=== PATIENT | female | born 1930 | race Caucasian/White ===

== ENCOUNTER → 2016-11-27 | Day surgery (SDC) | payer MEDICARE, OTHER ==
[~2016-11-27] VITALS: Ht 165.1 cm; Wt 60.0 kg
[~2016-11-27] MED LIST: AGGRENOX 25 MG1 EACH PO; CALTRATE 600 +1 EAC1 PO; COREG6.25 MG PO; CRESTOR10 MG PO; FISH OIL 1,0001 EACH PO; HYDROCODON-ACE1 EAC4 PO; KEFLEX500 MG PO; LEVOTHROID (SY50 MCG PO; MICARDIS40 MG PO; MYRBETRIQ25 MG PO; NORVASC2.5 MG PO; ONE DAILY1 EACH PO; OXYGEN M-15 INH; PRESERVISION A1 EACH PO; TRIAMCINOLONE454 GM TOP
--- NOTE | ~2016-11-27 | OR ---
PATIENT'S NAME: KRISTINE CRUM [facility] AGE: 86 Y [address] ROOM: [place] [id number] LOCATION: [facility] [place] ADMIT DATE: 11/27/2016 OR/Procedure Report DISCHARGE DATE: FAMILY PHYSICIAN: Effie Jaquez APRN ATTENDING PHYSICIAN: Anjum Cervantes SURGEON: Anjum Cervatnes DO INTEGRATION ANALYST: DATE OF PROCEDURE: 11/27/2016 PREOPERATIVE DIAGNOSIS: Dual-chamber generator at normal battery depletion. POSTOPERATIVE DIAGNOSIS: Dual-chamber generator at normal battery depletion. PROCEDURES PERFORMED: Exchange of dual-chamber pacemaker generator. BRIEF HISTORY: Ms. Crum is an 86-year-old white female with the above noted diagnosis. She has been brought to the Operative Suite today after informed consent was obtained for exchange of her device. DESCRIPTION OF SURGERY: Previous incision was marked with a surgical marker, and then sterilely prepped and draped. After appropriate IV sedation was achieved, 1% lidocaine was used to infiltrate the area. The incision was opened. Leads and generator were removed from the pocket. The old generator, which was a [employer], model S603, serial number [id number] was explanted, and the new generator, which is a [employer], model L111, serial number [id number] was connected to the leads. The leads and generator were placed back into the pocket. Appropriate sensing and pacing were noted. The incision was closed in a layered fashion with 2-0 Vicryl and 4-0 Monocryl. The patient was transferred to the Outpatient Recovery area in a stable condition. ANJUM CERVANTES DO MCB/modl /[id number] d: 12/02/16 0040 t: 12/02/16 1044, OPERATIVE SUMMARY
== END | disposition disaster alternative care site (69) ==
LOC: GPOC 11-26 11:00 → GSDC 07:00
PROC: 0JPT0PZ Removal of Cardiac Rhythm Related Device from Trunk Subcutaneous Tissue and Fascia, Open Approach (ICD-10-PCS; principal; 2016-11-27)
PROC: 0JH606Z Insertion of Pacemaker, Dual Chamber into Chest Subcutaneous Tissue and Fascia, Open Approach (ICD-10-PCS; 2016-11-27)
DX: Z45.010 Encounter for checking and testing of cardiac pacemaker pulse generator [battery] (principal); I25.10 Atherosclerotic heart disease of native coronary artery without angina pectoris; I10 Essential (primary) hypertension; F32.9 Major depressive disorder, single episode, unspecified; E78.5 Hyperlipidemia, unspecified; M19.90 Unspecified osteoarthritis, unspecified site; K21.9 Gastro-esophageal reflux disease without esophagitis; Z79.899 Other long term (current) drug therapy
CPT/HCPCS: C1785; J0690; J2001; J7030